=== PATIENT | female | born 1960 | race Caucasian/White ===

== ENCOUNTER 2017-09-14 08:30 | Emergency (ER) | payer OTHER ==
[~2017-09-14] VITALS: Ht 162.6 cm; Wt 89.4 kg
[~2017-09-14 08:30] MED LIST: ALPRAZOLAM0.5 M3 PO; AMLODIPINE10 MG PO; CALTRATE 600600 MG PO; DIAZEPAM5 MG PO; DICLOFENAC SODI75 M3 PO; DILAUDID2 MG PO; FLEXERIL 5MG TAB5 MG PO; FLUOXETINE20 MG PO; HYDROMORPHONE HC2 MG PO; ICY HOT TOP; LEADER MELATONIN5 MG PO; MIRALAX17 GM PO; OXYCONTIN10 MG PO; PERCOCET 325 MG1 TA2 PO; PRILOSEC 20MG C20 MG PO; STOOL SOFTENER1 TAB PO; Senokot S PO; ZOFRAN ODT4 MG PO
--- NOTE | 2017-09-14 09:15 | RADIOLOGY REPORT ---
EXAMINATION: XR CHEST CLINICAL INFORMATION: Productive cough. COMPARISON: Report from prior chest x-ray dated 07/21/2014, the actual images are not currently available for direct comparison. TECHNIQUE: Frontal and lateral views of the chest were obtained. FINDINGS: The lungs are clear bilaterally. There is no evidence of pleural effusion or pneumothorax. The central pulmonary vasculature is within normal limits. The cardiomediastinal silhouette is not enlarged. The bony structures and overlying soft tissues are unremarkable. IMPRESSION: No acute cardiopulmonary findings.
--- NOTE | 2017-09-14 10:10 | ED CARDIAC/CP/PALPITATIONS ---
History of Present Illness General Chief Complaint: General Adult Stated Complaint: SIB WALK IN FOR SOB R SIDED RIB PAIN Source: patient, family, old records Exam Limitations: no limitations Vital Signs & Intake/Output Vital Signs & Intake/Output Vital Signs Date Time Temp Pulse Resp B/P B/P Pulse O2 O2 Flow FiO2 Mean Ox Delivery Rate 09/14 0952 96 09/14 0839 98.3 86 20 137/75 98 Room Air Allergies Coded Allergies: MDX - Morphine (VOMITTING 09/04/14) Reconcile Medications Amlodipine Besylate (Amlodipine) 10 MG TABLET 1 TAB PO DAILY BP (Reported) Calcium Carbonate (Caltrate 600) 600 MG TAB 1 TAB PO DAILY BONE STRENGHT ( Reported) Diazepam 5 MG TAB 1 TAB PO TID ANXIETY/MUSCLE SPASM Diclofenac Sodium (Diclofenac Sodium Dr) 75 MG TABLET.DR 1 TAB PO BID PRN PAIN (Reported) HOLD: CHANGE TO IV PAIN MEDS Fluoxetine Hydrochloride (Fluoxetine) 20 MG CAP 1.5 CAP PO DAILY MENTAL HEALTH HYDROMORPHONE HCL (Hydromorphone HCl) 2 MG TAB 1 TAB PO Q4P PRN PAIN SCALE 6- 10 Melatonin 5 MG TABLET 1 TAB PO QPM SLEEP (Reported) Menthol/Methyl Salicylate (Icy Hot 10%-30%) 1 CRE CRE 1 CHANDLER TOP BID PAIN Omeprazole (Prilosec) 20 MG CAPSULE.DR 1 TAB PO DAILY GERD (Reported) Polyethylene Glycol 3350 (Miralax) 17 GRAM/DOSE POWDER 1 PAC PO DAILY CONSTIPATION SENNOSIDES/DOCUSATE SODIUM (Stool Softener Tablet) 8.6 MG-50 MG TABLET 1 TAB PO DAILY PRN PRN (Reported) Triage Note: PT SIB WALK IN FOR RIGHT SIDED RIB PAIN IN FRONT AND BACK, SOB. PT DENIES ANY INJURY TO RIBS. PT DENIES CP. PAIN STARTED WEDNESDAY Triage Nurses Notes Reviewed? yes Onset: Last week Duration: day(s):, constant, continues in ED Timing: recent history Quality/Severity: moderate, sharp, stabbing Location: R ant lower lateral Radiation: R flank Activities at Onset: coughing Prior Chest Pain/Card Workup: no prior cardiac workup Modifying Factors: Worsens With: coughing, movement. Nitro Today/Relief: no nitro taken today Aspirin Today: no aspirin today Associated Symptoms: shortness of breath LMP (ages 10-50): post menopausal : No Patient currently breastfeeds: No HPI: 5 days prior to admission patient complains of productive harsh cough of fonseca yellow sputum with episodes of shortness of breath and right-sided sharp moderate to severe chest pain with cough or torso movement. She denies fever chills nausea vomiting diarrhea abdominal pain headache dysuria rash bleeding. Past History Travel History Traveled to [place] past 21 day No Medical History Any Pertinent Medical History? see below for history Cardiovascular: hypertension Musculoskeletal: ARTHRITIS History of MRSA: No History of VRE: No History of CDIFF: No Pneumonia Vaccine: 07/18/14 Influenza Vaccine: 07/18/14 Surgical History Surgical History: non-contributory Psychosocial History Who do you live with Spouse Services at Home None What is your primary language Vietnamese Tobacco Use: Never used ETOH Use: occasional use Illicit Drug Use: marijuana Family History Hx Contributory? No Review of Systems Review of Systems Constitutional: Reports: see HPI, malaise. EENTM: Reports: no symptoms. Respiratory: Reports: see HPI, cough, short of breath, sputum production. Cardiovascular: Reports: see HPI, chest pain. GI: Reports: no symptoms. Genitourinary: Reports: no symptoms. Musculoskeletal: Reports: no symptoms. Skin: Reports: no symptoms. Neurological/Psychological: Reports: no symptoms. Hematologic/Endocrine: Reports: no symptoms. Immunologic/Allergic: Reports: no symptoms. All Other Systems: Reviewed and Negative Physical Exam Physical Exam General Appearance: well developed/nourished, alert, awake, anxious, mild distress, obese Head: atraumatic, normal appearance Eyes: Right: other (lateral subconjunctival hemorr). Bilateral: PERRL, EOMI. Ears, Nose, Throat: normal pharynx, normal ENT inspection, moist mucus membranes Neck: normal inspection, supple, full range of motion, no midline tenderness Respiratory: normal breath sounds, no respiratory distress, quiet respiration, lungs clear, R lat chest wall tenderness without crepitus or stepoff Cardiovascular: regular rate/rhythm, normal peripheral pulses, norml femoral pulses equa Peripheral Pulses: 4+ carotid (R), 4+ carotid (L) Gastrointestinal: normal bowel sounds, soft, non-tender, no organomegaly Back: normal inspection, normal range of motion, no vertebral tenderness Extremities: normal inspection, normal capillary refill, normal range of motion, no edema Neurologic/Psych: no motor/sensory deficits, awake, alert, oriented x 3, normal gait, normal mood/affect, 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 Skin: intact, normal color, warm/dry Lymphatic: no anterior cervical yamilet Core Measures ACS in differential dx? Yes No ASA d/t Medical Contraindication (ruled out) CVA/TIA Diagnosis No Sepsis Present: No Sepsis Focused Exam Completed? No Progress Differential Diagnosis: costochondritis, musculoskeletal pain, pancreatitis, pneumonia Plan of Care: Orders Procedure Date/time Status AEROSOL (GEN) 09/14 09 Complete TROPONIN LEVEL 09/14 853 Complete LIPASE 09/14 08 Complete D-DIMER 09/14 08 Complete COMPREHENSIVE METABOLIC PANEL 09/14 08 Complete CBC WITHOUT DIFFERENTIAL 09/14 853 Complete EKG 09/14 0832 Active Laboratory Tests 09/14/17 1028: Anion Gap 16, Estimated GFR > 60, BUN/Creatinine Ratio 20.0, Glucose 97, Calcium 9.5, Total Bilirubin 0.8, AST 20, ALT 30, Alkaline Phosphatase 104, Troponin I < 0.01, Total Protein 7.6, Albumin 4.4, Globulin 3.2, Albumin/Globulin Ratio 1.4, Lipase 40, D-Dimer High Sensitivty 201, CBC w Diff NO MAN DIFF REQ, RBC 4.17 L, MCV 95.8, MCH 31.4 H, RDW 14.1, MPV 7.9, Gran % 69.7, Lymphocytes % 20.4 L, Monocytes % 7.6, Eosinophils % 1.5, Basophils % 0.8, Absolute Granulocytes 6.2, Absolute Lymphocytes 1.8, Absolute Monocytes 0.7 H, Absolute Eosinophils 0.1, Absolute Basophils 0.1, PUBS MCHC 32.8 L Diagnostic Imaging: Viewed by Me: Radiology Read. Discussed w/RAD: Radiology Read. CXR Impression: no acute abnormality, no infiltrates, normal size heart, normal mediastinum Initial ED EKG: normal axis, normal intervals, normal p-waves, normal QRS complex, normal sinus rhythm Prior EKG: unchanged Rhythm Strip: normal sinus rhythm Comments: Pain and shortness of breath improved after interventions Departure Departure Time of Disposition: 8 Disposition: HOME OR SELF CARE Condition: Stable Clinical Impression Primary Impression: Bronchitis Secondary Impressions: Acute chest wall pain Referrals: Amol DEL CASTILLO,Moustapha Teixeira (PCP/Family) Departure Forms: Customer Survey General Discharge Information Prescriptions: Current Visit Scripts Cyclobenzaprine HCl 1 TAB PO QPM #30 TAB Albuterol Sulfate (Proair Hfa) 2 PUF INH Q4-6 PRN PRN shortness of breath #1 INHAL Amoxicillin 1 TAB PO BID #20 TAB Ibuprofen 1 TAB PO Q6PRN PRN pain #50 TAB with food Critical Care Note Critical Care Note Critical Care Time: non-applicable
[2017-09-14 10:40] LABS: ABSOLUTE BASOPHIL COUNT 0.1 /CUMM (0.0-0.2); ABSOLUTE EOSINOPHIL COUNT 0.1 /CUMM (0.0-0.7); ABSOLUTE GRANULOCYTE CT 6.2 /CUMM (1.4-6.5); ABSOLUTE LYMPH COUNT 1.8 /CUMM (1.2-3.4); ABSOLUTE MONOCYTE COUNT 0.7 /CUMM (0.10-0.60); BASOPHIL % 0.8 % (0.0-2.0); EOSINOPHIL % 1.5 % (0-5); GRANULOCYTE % 69.7 % (42.2-75.2); HEMATOCRIT 39.9 % (37-47); MEAN CORPUSCULAR HGB 31.4 PG (27.0-31.0); MEAN CORPUSCULAR HGB CONC 32.8 G/DL (33.0-37.0); MEAN CORPUSCULAR VOLUME 95.8 FL (81.0-99.0); MEAN PLATELET VOLUME 7.9 FL (7.4-10.4); PLATELET COUNT 264 /CUMM (130-400); RBC DISTRIBUTION WIDTH 14.1 % (11.5-14.5); RED BLOOD CELL CT 4.17 /CUMM (4.20-5.40); WHITE BLOOD CELL COUNT 8.8 /CUMM (4.8-10.8)
[2017-09-14 11:32] VITALS: BP 135/63
[2017-09-14] MEDS ORDERED: AMOXICILLIN875 M1 PO (11:32)
[2017-09-14] MEDS ORDERED: IBUPROFEN600 M1 PO (11:32)
[2017-09-14] MEDS ORDERED: CYCLOBENZAPRINE10 M1 PO (11:32)
[2017-09-14] MEDS ORDERED: PROAIR HFA8.5 GM INH (11:32)
== END 2017-09-14 12:06 ==
LOC: ERH 08:30
PROVIDERS: Emergency Medicine
DX: J40 Bronchitis, not specified as acute or chronic (principal); R07.89 Other chest pain
CPT/HCPCS: 1263; 71046; 93005; 93010; 96374; J1885

== ENCOUNTER 2017-09-19 14:21 | Emergency (ER) | payer OTHER ==
[~2017-09-19] VITALS: Ht 162.6 cm; Wt 89.4 kg
[~2017-09-19 14:21] MED LIST changes: +AMOXICILLIN875 M1 PO; +CYCLOBENZAPRINE10 M1 PO; +IBUPROFEN600 M1 PO; +PROAIR HFA8.5 GM INH
--- NOTE | 2017-09-19 14:43 | ED GI/GU/ABDOMINAL COMPLAINT ---
History of Present Illness General Chief Complaint: General Adult Stated Complaint: "I THINK I HAVE A BOWL OBSTRUCTION" Source: patient Exam Limitations: no limitations Vital Signs & Intake/Output Vital Signs & Intake/Output Vital Signs Date Time Temp Pulse Resp B/P B/P Pulse O2 O2 Flow FiO2 Mean Ox Delivery Rate 09/19 1758 Room Air Room Air 09/19 1749 97.6 74 15 146/67 100 Room Air Room Air 09/19 1431 98.5 88 15 136/85 96 Room Air Room Air Allergies Coded Allergies: morphine (VOMITING 09/19/17) Reconcile Medications Albuterol Sulfate (Proair Hfa) 90 MCG HFA.AER.AD 2 PUF INH Q4-6 PRN PRN shortness of breath Amlodipine Besylate (Amlodipine) 10 MG TABLET 1 TAB PO DAILY BP (Reported) Amoxicillin 875 MG TABLET 1 TAB PO BID bronchitis Calcium Carbonate (Caltrate 600) 600 MG TAB 1 TAB PO DAILY BONE STRENGHT ( Reported) Cyclobenzaprine HCl 10 MG TABLET 1 TAB PO QPM muscle strain Diazepam 5 MG TAB 1 TAB PO TID ANXIETY/MUSCLE SPASM Diclofenac Sodium (Diclofenac Sodium Dr) 75 MG TABLET.DR 1 TAB PO BID PRN PAIN (Reported) HOLD: CHANGE TO IV PAIN MEDS Fluoxetine Hydrochloride (Fluoxetine) 20 MG CAP 1.5 CAP PO DAILY MENTAL HEALTH HYDROMORPHONE HCL (Hydromorphone HCl) 2 MG TAB 1 TAB PO Q4P PRN PAIN SCALE 6- 10 Ibuprofen 600 MG TABLET 1 TAB PO Q6PRN PRN pain with food Magnesium Citrate 296 ML SOLUTION 296 ML PO ONCE CONSTIPATION Melatonin 5 MG TABLET 1 TAB PO QPM SLEEP (Reported) Menthol/Methyl Salicylate (Icy Hot 10%-30%) 1 CRE CRE 1 CHANDLER TOP BID PAIN Omeprazole (Prilosec) 20 MG CAPSULE.DR 1 TAB PO DAILY GERD (Reported) Ondansetron HCl (Zofran) 4 MG TABLET 1 TAB PO Q6-8P PRN NAUSEA Polyethylene Glycol 3350 (Miralax) 17 GRAM/DOSE POWDER 1 PAC PO DAILY CONSTIPATION SENNOSIDES/DOCUSATE SODIUM (Stool Softener Tablet) 8.6 MG-50 MG TABLET 1 TAB PO DAILY PRN PRN (Reported) Triage Note: PT TO ED FOR C/C OF DIFFUSE ABD PAIN THAT STARTED ON WEDNESDAY. TODAY, PT STARTED TO VOMIT TODAY. PT TOOK SUPPOSITORY AND STOOL SOFTENERS WITHOUT RELIEF. UNSURE OF EXACT KNOWN BM, BUT KNOWS IT HASN'T BEEN FOR A WEEK AT LEAST. Triage Nurses Notes Reviewed? yes ? N Is pt currently ? No Onset: Gradual Duration: constant Timing: recent history Quality/Severity: sharpness, severe, stabbing Severity Numbers: 7 Radiation: no radiation HPI: Patient is a 57-year-old female with past medical history of chronic constipation where she states that usually she has bowel movements every 3-4 days, patient has a past medical history of GERD chronic pain not on narcotics, GERD and hypertension who presents to emergency room with concerns of no bowel movement 7 days and patient had gradual onset of worsening abdominal pain and rectal discomfort however today patient has had multiple episodes of nonbloody nonbilious emesis since and is concerned of a small bowel structure. Patient has no history of SBO Surgical intervention of abdomen only is positive for hysterectomy Patient was evaluated at [facility] emergency room on September 14 for concerns of bronchitis and atypical chest pain and patient was safely discharged with antibiotics (Dawit Castro) Past History Travel History Traveled to [place] past 21 day No Medical History Any Pertinent Medical History? see below for history Cardiovascular: hypertension Musculoskeletal: ARTHRITIS History of MRSA: No History of VRE: No History of CDIFF: No Surgical History Surgical History: hysterectomy Psychosocial History Who do you live with Spouse Services at Home None What is your primary language Swedish Tobacco Use: Never used ETOH Use: occasional use Illicit Drug Use: marijuana Family History Hx Contributory? No (Dawit Castro) Review of Systems Review of Systems Constitutional: Reports: no symptoms. EENTM: Reports: no symptoms. Respiratory: Reports: no symptoms. Cardiovascular: Reports: no symptoms. GI: Reports: see HPI, abdominal pain. Genitourinary: Reports: no symptoms. Musculoskeletal: Reports: no symptoms. Skin: Reports: no symptoms. Neurological/Psychological: Reports: no symptoms. Hematologic/Endocrine: Reports: no symptoms. Immunologic/Allergic: Reports: no symptoms. All Other Systems: Reviewed and Negative (Dawit Castro) Physical Exam Physical Exam General Appearance: moderate distress Head: atraumatic Eyes: Bilateral: normal appearance. Ears, Nose, Throat, Mouth: hearing grossly normal Neck: normal inspection Respiratory: normal breath sounds Cardiovascular: tachycardia Peripheral Pulses: 2+ radial (R) Gastrointestinal: normal bowel sounds, soft, tenderness Extremities: normal range of motion Neurologic/Psych: no motor/sensory deficits, awake, alert Skin: intact, normal color, warm/dry Core Measures ACS in differential dx? No Sepsis Present: No Sepsis Focused Exam Completed? No (Harry JACOBO,Dawit) Progress Differential Diagnosis: AAA, AMI, appendicitis, biliary colic, bowel obstruction , colon cancer, cholecystitis, diverticulitis, endometritis, esophageal varices, gastritis, hepatitis, hernia, hemorrhoids, ischemic bowel, inflamm bowel dis, kidney stone, Elin-Joshua tear, ovarian cyst, ovarian torsion, pancreatitis, PID/cervicitis, peptic ulcer, PUD/GERD, perforated viscous, SBO, UTI/pyelo Plan of Care: Orders Procedure Date/time Status Add-on Test (ER Only) 09/19 1803 Active EKG 09/19 1803 Active LACTIC ACID 09/19 1744 Active TROPONIN LEVEL 09/19 1528 Complete LIPASE 09/19 1444 Complete COMPREHENSIVE METABOLIC PANEL 09/19 1444 Complete CBC WITHOUT DIFFERENTIAL 09/19 1444 Complete AMYLASE 09/19 1444 Complete Laboratory Tests 09/19/17 1528: Anion Gap 15, Estimated GFR > 60, BUN/Creatinine Ratio 23.3, Glucose 100 H, Calcium 9.3, Total Bilirubin 0.7, AST 21, ALT 25, Alkaline Phosphatase 123, Troponin I < 0.01, Total Protein 7.3, Albumin 4.2, Globulin 3.1, Albumin/ Globulin Ratio 1.4, Amylase 36, Lipase 28, CBC w Diff NO MAN DIFF REQ, RBC 4.49, MCV 94.3, MCH 32.2 H, MCHC 34.1, RDW 14.1, MPV 8.6, Gran % 83.4 H, Lymphocytes % 8.4 L, Monocytes % 6.4, Eosinophils % 0.9, Basophils % 0.9, Absolute Granulocytes 9.7 H, Absolute Lymphocytes 1.0 L, Absolute Monocytes 0.7 H, Absolute Eosinophils 0.1, Absolute Basophils 0.1 Patient on initial presentation was noted to be in distress and has abdominal pain, 180- pain medications was given with significant resolution of pain nausea has resolved blood work was reviewed showing unremarkable findings CT scan currently pending Patient resting comfortably at bedside I discussed CT scan with patient for concerns of constipation where it strongly advised patient to begin stool softeners and laxatives and follow up with GI patient also was strongly advised to follow-up with surgery for cholelithiasis over no overt findings of cholecystitis at this time. Upon discharge patient looks oh no apparent distress patient was able tolerate by mouth It was noted that patient has a past medical pseudotumor cerebri where she states that she has a remote history of a shunt being broken and dislodged and has been stable in her pelvis since with patient and was reviewed with CT scan in which she has a known shunt to this region with no changes, Diagnostic Imaging: Viewed by Me: CT Scan. Radiology Impression: no acute abnormality Initial ED EKG: normal p-waves, normal QRS complex, normal sinus rhythm, 70 BPM, NSR Comments: PATIENT: DARBY PERRY PRESENT AGE: 57 PATIENT ACCOUNT NO: [id number] : 60 LOCATION: [facility] ORDERING PHYSICIAN: Dawit JACOBO SERVICE DATE: 09/19/171444 EXAM TYPE: CAT - CT ABD & PELVIS W IV CONTRAST EXAMINATION: CT ABDOMEN AND PELVIS WITH CONTRAST CLINICAL INFORMATION: Abdominal pain COMPARISON: CT abdomen and pelvis 09/15/2014 TECHNIQUE: Multidetector volumetric imaging was performed of the abdomen and pelvis following IV administration of 94 mL of Optiray 320 intravenous contrast. Sagittal and coronal reformatted images were obtained on the technologist's workstation. DLP: 661 mGy-cm FINDINGS: LUNG BASES: The visualized lung bases are unremarkable. LIVER, GALLBLADDER, AND BILIARY TREE: The liver is normal in size, shape, and attenuation. No focal hepatic lesion or biliary ductal dilatation is present. Multiple hyperdense gallstones are present within the gallbladder which is otherwise within normal limits. PANCREAS: Unremarkable. SPLEEN: Unremarkable. ADRENAL GLANDS: Unremarkable. KIDNEYS AND URETERS: The kidneys are normal in size, shape, and attenuation. No hydronephrosis, hydroureter, or calculi seen. No perinephric stranding. There is a small hypodense cyst in the upper pole of the right kidney measuring 1.1 cm. A smaller hypodensity within the midpole region of the left kidney measuring 0.7 cm is too small to characterize but statistically most likely represents a cyst. BLADDER: Unremarkable. GASTROINTESTINAL TRACT: A linear hyperdense catheter terminates within the pelvis, similar in configuration compared to 09/05/2014. There is dense stool present throughout the colon. Particularly dense stool is noted within the sigmoid colon. There is a small amount of free fluid surrounding the sigmoid colon and extending into the pelvis. ABDOMINAL WALL: No significant hernia is appreciated. LYMPH NODES: Normal. VASCULAR: Unremarkable. PELVIC VISCERA: The uterus appears surgically absent. No adnexal masses. OSSEOUS STRUCTURES: There is posterior fusion of the L3-L5 vertebral bodies. The hardware appears intact. Intervertebral disc spaces aren't place. The remainder of the visual is portions of the lower thoracic and lumbar spine appear within normal limits. IMPRESSION: 1. No acute intra-abdominal or pelvic findings. 2. Small catheter terminating within the pelvis with a small amount of associated pelvic fluid, little changed compared to the [address] CT. 3. Dense stool present throughout the colon. 4. Cholelithiasis without CT evidence for acute cholecystitis. DICTATED BY: Debbi Pastor MD DATE/TIME DICTATED:09/19/171799 TIMBER SURVEYOR:SUSIE DATE/TIME TRANSCRIBED:09/19/171799 CONFIDENTIAL, DO NOT COPY WITHOUT APPROPRIA (Dawit Castro) Departure Departure Disposition: HOME OR SELF CARE Condition: Stable Clinical Impression Primary Impression: Constipation Secondary Impressions: Abdominal pain, Gallstones Referrals: Amol DEL CASTILLO,Moustapha Teixeira (PCP/Family) Moise DEL CASTILLO,Alexandr Mujica MD,Bashir Barahona Additional Instructions: As discussed begin drinking water and high fiber to improve your bowel movements , begin [id number] stool softener - DOCULSATE and laxatives such as MiraLAX for improvement of symptoms, begin the prescription of magnesium citrate to improve bowel movements, follow up with gastroenterology Dr. Phipps this week if no better, avoid fatty foods as this may worsen your symptoms and follow up this week with surgeon Dr. Mujica for further evaluation, if fevers or worsening pain or persistent nausea occurs return to emergency room. Prescription is waiting at [facility] Departure Forms: Customer Survey General Discharge Information Prescriptions: Current Visit Scripts Magnesium Citrate 296 ML PO ONCE #296 ML Ref 1 Ondansetron HCl (Zofran) 1 TAB PO Q6-8P PRN NAUSEA #10 TAB (Dawit Castor) PA/RECYCLABLE MATERIALS DISTRIBUTOR Co-Sign Statement Statement: ED Attending supervision documentation- I saw and evaluated the patient. I have also reviewed all the pertinent lab results and diagnostic results. I agree with the findings and the plan of care as documented in the PA's/RECYCLABLE MATERIALS DISTRIBUTOR's documentation. x I have reviewed the ED Record and agree with the PA's/RECYCLABLE MATERIALS DISTRIBUTOR's documentation. [] Additions or exceptions (if any) to the PAs/RECYCLABLE MATERIALS DISTRIBUTOR's note and plan are summarized below: [] (Sivakumar DEL CASTILLO,[place])
[2017-09-19 15:44] LABS: ABSOLUTE BASOPHIL COUNT 0.1 /CUMM (0.0-0.2); ABSOLUTE EOSINOPHIL COUNT 0.1 /CUMM (0.0-0.7); ABSOLUTE MONOCYTE COUNT 0.7 /CUMM (0.10-0.60); BASOPHIL % 0.9 % (0.0-2.0); EOSINOPHIL % 0.9 % (0-5); GRANULOCYTE % 83.4 % (42.2-75.2); HEMATOCRIT 42.4 % (37-47); MEAN CORPUSCULAR HGB 32.2 PG (27.0-31.0); MEAN CORPUSCULAR HGB CONC 34.1 G/DL (33.0-37.0); MEAN CORPUSCULAR VOLUME 94.3 FL (81.0-99.0); MEAN PLATELET VOLUME 8.6 FL (7.4-10.4); PLATELET COUNT 283 /CUMM (130-400); RBC DISTRIBUTION WIDTH 14.1 % (11.5-14.5); RED BLOOD CELL CT 4.49 /CUMM (4.20-5.40); WHITE BLOOD CELL COUNT 11.7 /CUMM (4.8-10.8)
[2017-09-19 15:45] LABS: ABSOLUTE GRANULOCYTE CT 9.7 /CUMM (1.4-6.5)
[2017-09-19 17:49] VITALS: BP 146/67
--- NOTE | 2017-09-19 18:12 | CT SCAN REPORT ---
EXAMINATION: CT ABDOMEN AND PELVIS WITH CONTRAST CLINICAL INFORMATION: Abdominal pain COMPARISON: CT abdomen and pelvis 09/15/2014 TECHNIQUE: Multidetector volumetric imaging was performed of the abdomen and pelvis following IV administration of 94 mL of Optiray 320 intravenous contrast. Sagittal and coronal reformatted images were obtained on the technologist's workstation. DLP: 661 mGy-cm FINDINGS: LUNG BASES: The visualized lung bases are unremarkable. LIVER, GALLBLADDER, AND BILIARY TREE: The liver is normal in size, shape, and attenuation. No focal hepatic lesion or biliary ductal dilatation is present. Multiple hyperdense gallstones are present within the gallbladder which is otherwise within normal limits. PANCREAS: Unremarkable. SPLEEN: Unremarkable. ADRENAL GLANDS: Unremarkable. KIDNEYS AND URETERS: The kidneys are normal in size, shape, and attenuation. No hydronephrosis, hydroureter, or calculi seen. No perinephric stranding. There is a small hypodense cyst in the upper pole of the right kidney measuring 1.1 cm. A smaller hypodensity within the midpole region of the left kidney measuring 0.7 cm is too small to characterize but statistically most likely represents a cyst. BLADDER: Unremarkable. GASTROINTESTINAL TRACT: A linear hyperdense catheter terminates within the pelvis, similar in configuration compared to 09/05/2014. There is dense stool present throughout the colon. Particularly dense stool is noted within the sigmoid colon. There is a small amount of free fluid surrounding the sigmoid colon and extending into the pelvis. ABDOMINAL WALL: No significant hernia is appreciated. LYMPH NODES: Normal. VASCULAR: Unremarkable. PELVIC VISCERA: The uterus appears surgically absent. No adnexal masses. OSSEOUS STRUCTURES: There is posterior fusion of the L3-L5 vertebral bodies. The hardware appears intact. Intervertebral disc spaces aren't place. The remainder of the visual is portions of the lower thoracic and lumbar spine appear within normal limits. IMPRESSION: 1. No acute intra-abdominal or pelvic findings. 2. Small catheter terminating within the pelvis with a small amount of associated pelvic fluid, little changed compared to the 2014 CT. 3. Dense stool present throughout the colon. 4. Cholelithiasis without CT evidence for acute cholecystitis.
[2017-09-19] MEDS ORDERED: MAGNESIUM CITR296 ML PO (18:54)
[2017-09-19] MEDS ORDERED: ZOFRAN4 M2 PO (18:54)
== END 2017-09-19 19:10 ==
LOC: ERH 14:21
PROVIDERS: Physician Assistant
DX: K80.20 Calculus of gallbladder without cholecystitis without obstruction (principal); K59.00 Constipation, unspecified
CPT/HCPCS: 74177; 93005; 93010; 96374; J2405

== ENCOUNTER → 2017-10-20 | Day surgery (SDC) | payer OTHER ==
[~2017-10-20] VITALS: Ht 163.8 cm; Wt 88.5 kg
[~2017-10-20] MED LIST changes: +ALPRAZOLAM0.5 M4 PO; +AMLODIPINE BESY10 M1 PO; +AMOXICILLIN500 M2 PO; +CALCIUM500 M1 PO; +COLACE100 M1 PO; +DICLOFENAC SODI75 M2 PO; +ECHINACEA400 M1 PO; +ESTRADIOL1 M1 PO; +FLUOXETINE HCL10 MG PO; +MAGNESIUM CITR296 ML PO; +MECLIZINE HCL25 MG PO; +MELATONIN5 M7 PO; +OMEPRAZOLE20 M3 PO; +VITAMIN D2000 UNIT PO; +ZOFRAN4 M2 PO
--- NOTE | 2017-10-20 12:31 | Operative Report ---
Operative/Inv Procedure Report Surgery Date: 10/20/17 Name of Procedure: Laparoscopic cholecystectomy Pre-Operative Diagnosis: Biliary colic Post-Operative Diagnosis: Same Estimated Blood Loss: scant Surgeon/Legal Instructor: Guanako DEL CASTILLO,Bashir Barahona/Thalia JACOBO Anesthesia: general endotracheal tube Drains: None Specimens: Gallbladder Operative Indication: 57-year-old woman with episodic right upper quadrant abdominal pain. She is found to have gallstones presents for resection Operative/Procedure Note Note: After informed consent patient is brought to the operating room and laid supine. General anesthesia was obtained and her abdomen was prepped and draped. The skin above the umbilicus infiltrated with local anesthesia and a curvilinear incision made sharply. We came down through the subcutaneous tissues bluntly and grasped the fascia with [place]'s. A fasciotomy was created sharply and stay sutures placed. The peritoneum was entered sharply and a blunt Arellano port was placed. Pneumoperitoneum was achieved. 3, 5 mm ports were placed in the epigastrium and right upper quadrant after local anesthesia was instilled and under direct vision the camera. She's placed in reverse Trendelenburg and rotated towards the left. The gallbladder is identified. It was grasped at the dome and retracted towards the head. Infundibulum was then grasped. Adhesions to the undersurface were taken down with blunt and cautery dissection. We dissected both sides the triangle Calot peritoneal tissue with cautery. The artery was medial and its normal anatomic position. It was cauterized medially to allow it to be mobilized away from the duct. [place] was cleared of areolar tissue with cautery. The arteries and duct were doubly ligated with clips. Gallbladder is removed from the fossa electrocautery. It was placed in Endo Catch bag and cinched up. Right upper quadrant was and suction irrigated normal saline. Hemostasis achieved with cautery. The ports were then removed and the gallbladder delivered and passed off the field. The fascia was closed with 0 Vicryl suture. Skin incisions closed with 4-0 Vicryl. Steri-Strips and sterile dressing applied. Sponge and needle counts are correct. CC: Amol DEL CASTILLO,Moustapha
== END ==
LOC: STS 02:50
DX: K80.10 Calculus of gallbladder with chronic cholecystitis without obstruction (principal); I10 Essential (primary) hypertension; K21.9 Gastro-esophageal reflux disease without esophagitis; M19.90 Unspecified osteoarthritis, unspecified site
CPT/HCPCS: 88304; J0131; J0690; J2250; J3490